=== PATIENT | male | born 1950 | race Caucasian/White ===

== ENCOUNTER → 2017-10-26 | Outpatient (REF) | payer MEDICARE ==
[2017-10-31 00:07] LABS: CHROMOGRANIN A 2 nmol/L (0-5)
== END ==
LOC: M LAB REF 18:02
DX: D3A.00 Benign carcinoid tumor of unspecified site (principal)
CPT/HCPCS: 86316

== ENCOUNTER → 2018-02-01 | Outpatient (REF) | payer MEDICARE ==
[2018-02-01 13:46] LABS: GAMMA GLUTAMYLTRANSPEPTIDASE 402 U/L (15-85)
== END ==
LOC: M LAB REF 11:58
DX: R74.8 Abnormal levels of other serum enzymes (principal)
CPT/HCPCS: 82977

== ENCOUNTER → 2019-06-04 | Outpatient (REF) | payer MEDICARE ==
[~2019-06-04] MED LIST: CLIN1GEL19 TOP; LEVO50TA5; ZITHTAB PO
== END ==
LOC: M LAB REF 16:33
PROVIDERS: ATTEND Family Medicine
DX: E29.1 Testicular hypofunction (principal)

== ENCOUNTER → 2020-07-12 | Outpatient (REF) | payer MEDICARE ==
[2020-07-12 15:30] LABS: APPEARANCE, URINE CLEAR (CLEAR); BACTERIA, URINE AUTO 1+ (NEGATIVE); BILIRUBIN, URINE AUTO NEGATIVE (NEGATIVE); BLOOD, URINE BLOOD NEGATIVE (NEGATIVE); COLOR, URINE YELLOW (YELLOW); GLUCOSE, URINE (UA) AUTO NEGATIVE (NEGATIVE); KETONE, URINE AUTO NEGATIVE (NEGATIVE); LEUKOCYTE ESTERASE, URINE AUTO NEGATIVE (NEGATIVE); MUCUS, URINE SMALL (NEGATIVE); NITRITE, URINE AUTO NEGATIVE (NEGATIVE); PROTEIN, URINE AUTO NEGATIVE (NEGATIVE); RBC, URINE AUTO 0 /HPF (0-3); SPECIFIC GRAVITY URINE AUTO 1.015 (1.002-1.035); SQUAMOUS EPITHELIAL CELL UR AU 0 /HPF (0-6); UROBILINOGEN, URINE AUTO 0.2 mg/dL (0.0-2.0); WBC, URINE AUTO 1 /HPF (0-3)
== END ==
LOC: M LAB REF 15:09
PROVIDERS: ATTEND Physician Assistant Medical
DX: N39.0 Urinary tract infection, site not specified (principal)

== ENCOUNTER → 2020-10-28 | Outpatient (REF) | payer MEDICARE | LOC: M LAB REF 17:26 | PROVIDERS: ATTEND Family Medicine | DX: E29.1 Testicular hypofunction (principal) ==

== ENCOUNTER → 2021-01-18 | Outpatient (REF) | payer MEDICARE | LOC: M LAB REF 16:09 | PROVIDERS: ATTEND Family Medicine | DX: M10.9 Gout, unspecified (principal) ==

== ENCOUNTER → 2021-03-24 | Outpatient (CLI) | payer MEDICARE ==
--- NOTE | 2021-03-24 14:37 | REP ---
INDICATION: PAIN COMPARISON: None. TECHNIQUE: AP, lateral, bilateral oblique views right 2nd digit. FINDINGS: Age related arthritic changes are appreciated. No acute fracture or dislocation. No subcutaneous emphysema or foreign body. IMPRESSION: . No acute fracture or dislocation. <Electronically signed by Bobby Reich > 03/24/21 [id number]
== END ==
LOC: M WUC 13:13
PROVIDERS: ATTEND Nurse Practitioner Family
DX: M79.644 Pain in right finger(s) (principal); S60.121A Contusion of right index finger with damage to nail, initial encounter; X58.XXXA Exposure to other specified factors, initial encounter; Y92.9 Unspecified place or not applicable; M19.011 Primary osteoarthritis, right shoulder

== ENCOUNTER → 2021-07-15 | Outpatient (REF) | payer MEDICARE | LOC: M LAB REF 16:39 | PROVIDERS: ATTEND Family Medicine | DX: C7B.02 Secondary carcinoid tumors of liver (principal); Z12.5 Encounter for screening for malignant neoplasm of prostate ==

== ENCOUNTER → 2023-01-25 | Outpatient (REF) | payer MEDICARE | LOC: M SFHCWOUN 13:15 | PROVIDERS: ATTEND Surgery | DX: L98.0 Pyogenic granuloma (principal) ==

== ENCOUNTER → 2024-01-09 | Outpatient (REF) | payer MEDICARE ==
[2024-01-09 14:37] LABS: FOLATE 15.1 NG/ML (>5.4)
[2024-01-10 17:09] LABS: PERCENT SATURATION 29.8 % (19.7-50.0)
[2024-01-10 17:13] LABS: FERRITIN 209.5 NG/ML (10.5-307.3)
== END ==
LOC: M LAB REF 13:28
PROVIDERS: ATTEND Family Medicine
DX: D50.9 Iron deficiency anemia, unspecified (principal); E29.1 Testicular hypofunction

== ENCOUNTER → 2024-03-18 | Outpatient (REF) | payer MEDICARE ==
[2024-03-18 18:19] LABS: FOLATE > 24.0 NG/ML (>5.4)
[2024-03-18 18:20] LABS: VITAMIN B12 LEVEL 425 PG/ML (211-911)
== END ==
LOC: M LAB REF 16:20
PROVIDERS: ATTEND Family Medicine
DX: D50.9 Iron deficiency anemia, unspecified (principal); E29.1 Testicular hypofunction

== ENCOUNTER 2024-03-31 18:58 | Emergency (ER) | payer MEDICARE ==
[~2024-03-31] VITALS: Ht 162.6 cm; Wt 69.8 kg
[2024-03-31 18:58] VITALS: BP 173/75; TEMP 96.9; O2SAT 98
[2024-03-31] MEDS: LACTULOSE 20GM/30ML SYRUP UDC PO ONE (22:05)
[2024-03-31] MEDS: GLYCERIN ADULT SUPP PR ONE (22:12)
[2024-03-31] MEDS ORDERED: ANUS25SU PR (23:20)
[2024-03-31] MEDS ORDERED: MIRA3350 PO (23:20)
== END 2024-03-31 23:39 | disposition home or self-care (01) ==
LOC: M ED 18:58
DX: K59.00 Constipation, unspecified (principal); K64.8 Other hemorrhoids; I10 Essential (primary) hypertension; E03.9 Hypothyroidism, unspecified; Z79.899 Other long term (current) drug therapy

== ENCOUNTER → 2024-12-05 | Outpatient (REF) | payer MEDICARE ==
[~2024-12-05] MED LIST changes: +ANUS25SU PR; +MIRA3350 PO
== END ==
LOC: M LAB REF 15:12
PROVIDERS: ATTEND Family Medicine
DX: E29.1 Testicular hypofunction (principal)

== ENCOUNTER → 2025-05-07 | Outpatient (CLI) | payer MEDICARE | LOC: M CARPUL 10:49 | PROVIDERS: ATTEND Family Medicine | DX: R01.1 Cardiac murmur, unspecified (principal); R00.1 Bradycardia, unspecified; I08.0 Rheumatic disorders of both mitral and aortic valves ==